=== PATIENT | female | born 1955 | race Caucasian/White ===

== ENCOUNTER → 2016-06-13 | Outpatient (CLI) | payer MEDICAID ==
[~2016-06-13] MED LIST: APAP/BUTALBITAL1 TA1 PO; ASPRIN OR; AUGMENTIN 875-1 EACH PO; B12-METHYL1000 MCG PO; BUPROPION HCL100 M1 PO; CIPRO 500MG TA500 MG PO; D3-50001 TAB PO; E-400400 IU PO; ERRIN0.35 MG PO; ETODOLAC400 MG PO; EXCEDRIN TENSIO1 CAP PO; FLONASE 50 MCG16 GM; HYDROCHLOROTHIA25 M1 PO; IBUPROFEN800 MG PO; LISINOPRIL/HCTZ1 TA3 FT; LOSARTAN POTASS50 MG PO; MAGNESIUM WITH ZINC OR; MEDROL 4MG. DOSE4 MG PO; MELATONIN5 M3 PO; METHOCARBAMOL750 M1 PO; MSM1000 MG PO; NABUMETONE750 MG PO; OLANZAPINE5 M1 PO; PANTOPRAZOLE SO40 MG PO; PHENERGAN12.5 M3 PO; ROBAXIN-750750 MG PO; TROSPIUM CHLORI20 MG PO; VIBRAMYCIN 100100 MG PO; VITA-BEE WITH C1 TAB PO; VITAMIN C500 M1 PO; VITAMIN E 400400 IU PO; VOLTAREN100 GM TP; WELLBUTRIN SR100 MG PO; ZOFRAN4 MG PO
[2016-06-13 15:44] LABS: HEMOGLOBIN 14.2 g/dL (12.2-16.2); LYMPH # 2.1 K/mm3 (0.7-4.5); LYMPH % 36.9 % (10-50.0)
[2016-06-13 17:00] LABS: BUN 16 mg/dL (7-18); GFR (ESTIMATED) 85 ML/MIN (59-)
== END ==
LOC: LAB 15:31
PROVIDERS: Family Medicine
DX: I10 Essential (primary) hypertension (principal); R53.83 Other fatigue; R05 Cough

== ENCOUNTER → 2016-12-09 | Outpatient (CLI) | payer MEDICAID ==
[2016-12-09 10:28] LABS: HEMOGLOBIN 13.5 g/dL (12.2-16.2); LYMPH # 2.5 K/mm3 (0.7-4.5); LYMPH % 52.5 % (10-50.0)
--- NOTE | 2016-12-09 11:23 | RADIOLOGY REPORT PS360 ---
CHEST(2 VIEWS-NOT PORTABLE) HISTORY: Hypertension HTN ORDERING PHYSICIAN: Baldomero Garces MD PATIENT AGE: 61 years COMPARISON: 03/08/2010 FINDINGS: The cardiomediastinal silhouette and pulmonary vascularity are within normal limits. No lobar consolidation or collapse is evident. There is some increased density anterior to the T10 and T11 vertebral body habitus somewhat similar appearance on the previous exam probably related to summation density from overlying vessels. Follow-up suggested to confirm stability. There are degenerative changes in the thoracic spine and shoulders. IMPRESSION: 1. No definite acute finding. 2. Nonspecific increased density anterior to the spine on the lateral view probably related to overlapping vessels. Follow-up recommended to confirm stability. Alternatively, chest CT may be of further value as well.
[2016-12-09 11:43] LABS: BUN 14 mg/dL (7-18)
[2016-12-09 11:50] LABS: GFR (ESTIMATED) 56 ML/MIN (59-)
[2016-12-09 12:19] LABS: NEUTROPHILS 32 % (42-76)
== END ==
LOC: LAB 10:16
PROVIDERS: Orthopaedic Surgery
DX: M17.11 Unilateral primary osteoarthritis, right knee (principal); Z01.810 Encounter for preprocedural cardiovascular examination; Z01.811 Encounter for preprocedural respiratory examination; Z01.812 Encounter for preprocedural laboratory examination; Z01.818 Encounter for other preprocedural examination

== ENCOUNTER 2016-12-24 06:05 | Inpatient (IN) | payer MEDICAID ==
[~2016-12-24] VITALS: Ht 170.2 cm; Wt 116.6 kg
[2016-12-24] VITALS (16 sets, daily range): BP systolic 80–147; BP diastolic 47–87
--- NOTE | 2016-12-24 11:46 | Anesthesia Record ---
Anesthesia Record Part I Total IV fluids: 800 EBL (ml): 200 Urine Output: 275 B/P: 120/75 % SaO2: 93 Pulse: 66 Resps: 10 Temp: 97.2 Patient is: Awake, Drowsy, Nasal O2, Stable Stable to PACU at: 1138 at 1146
--- NOTE | 2016-12-24 11:47 | Anesthesia Record ---
Anesthesia Record Part II Discharge time: 1208 Destination: Second Floor PACU nurse assessment review? Yes Patient is: Awake, Stable Anesthesia complications? No at 1143
--- NOTE | 2016-12-24 13:33 | PHARMACY CLINIC NOTE ---
Patient Demographics Patient Demographics Admission date: 12/24/16 Date: 12/24/16 Time: 1332 Allergies Coded Allergies: Penicillins (12/24/16) aspirin (From TALWIN COMPOUND) (12/24/16) cephalexin (12/24/16) diclofenac (From ARTHROTEC) (12/24/16) metaxalone (From SKELAXIN) (12/24/16) misoprostol (From ARTHROTEC) (12/24/16) nabumetone (From RELAFEN) (12/24/16) pentazocine (From TALWIN COMPOUND) (12/24/16) sucralfate (From CARAFATE) (12/24/16) topiramate (From TOPAMAX) (SLEEP WALKING 12/24/16) HEIGHT- FT: 5 IN: 4.00 K.575 VTE General Information Disclaimer The following section includes nursing documentation that has been pulled in for pharmacy review. VTE prophylaxis NQF [id number] VTE prophylaxis ordered? Yes Type of prophylaxis/treatment: ICD (POST OP) at 5230
--- NOTE | 2016-12-24 14:03 | RADIOLOGY REPORT PS360 ---
KNEE-LIMITED 2 VIEWS-RT HISTORY: Follow-up knee replacement s/p TKA ORDERING PHYSICIAN: Baldomero Garces MD PATIENT AGE: 61 years COMPARISON: 11/07/2016 FINDINGS: Status post total knee replacement. Good alignment of the prosthesis. No evidence of immediate orthopedic complication. IMPRESSION: Status post total knee replacement with good bony alignment
--- NOTE | 2016-12-24 14:43 | Operative Note ---
Procedure/Operative Record Date of Procedure: 12/24/16 Pre-op diagnosis: RIGHT knee osteoarthritis, tricompartmental Post-op diagnosis: Same Procedure performed: RIGHT knee total knee arthroplasty Surgeon: Baldomero Garces Catering Barista(s): Dr. East Anesthesia: Femoral sciatic block plus general anesthetic Indications: 61-year-old female with RIGHT knee pain due to osteoarthritis. This is been recalcitrant to nonsurgical means. All nonsurgical means which are appropriate with the patient a been exhausted and a total knee arthroplasty is indicated to preserve knee function, relieve pain, and help prevent falls. Findings: Intraoperative findings revealed the presence of tricompartmental osteoarthritis consistent with the preoperative x-rays. Multiple loose bodies were present within the joint. Description of procedure: The patient was taken to the operating room after anesthesia had previously administered a block. In the operating room, she was prepped and draped in usual sterile fashion after general anesthetic was administered. The entire operative team wore isolation suits. The operative site was sealed with Ioban and radiographic controlled. The limb was exsanguinated to 325 mmHg. A midline incision was made through the skin with a knife and electrocautery used to achieve hemostasis. The quadriceps tendon was incised with a median parapatellar incision and the patella everted carefully. We then removed remnants of the anterior cruciate ligament and anterior aspect of both menisci and utilized the entry drill to enter the femoral canal. The intramedullary rayna was placed and the distal cut alignment guide positioned. The distal cut was made and the sizing jig placed. This sized best at a size 4 for the [employer] system. We placed the four in one cutting jig in position and made the anterior, posterior, posterior chamfer, and anterior chamfer cuts in that order. We checked for trueness of cuts and then moved on to the tibia. We took care to ensure the tibia alignment was appropriate using the extra medullary jig. We then resected the tibia just skimming the subchondral bone on the medial side which was a heaviest involved with arthritis. We remove the tibial plateau articular surface and sized it at a size 4 as well. We then everted the patella and reamed for a 26 mm central pegged button. We placed trial components and noted that a 13 mm thick polyethylene fit best. This was stable allowed full extension. We allow this to free-floating and then checked it and made sure it was in appropriate position located over the tibial tubercle and slightly externally rotated. We had lateralized the femur and medialized the patella intentionally. A small bony defect was noted medially on the medial femoral condyle but this was not deemed of significant consequence. We used a small trocar tipped pin drill holes into the subchondral sclerotic bone of the medial tibia to augment cement fixation. We then copiously irrigated, injected the bone with 2 g of Ancef, and irrigated again. We then cemented the tibial tray, femur, and placed a 13 mm trial polyethylene insert and brought the knee into extension. We then cemented the central pegged button. We allow the cement to dry and then inspected for any bits and pieces that needed to be removed with an osteotome. This was performed and we irrigated again. We then deflated the tourniquet and checked for any bleeders arresting these with hemostasis electrocautery. We then placed the 13 mm final polyethylene ensuring that the dovetails fit appropriately and that the polyethylene was down and seated into the tibial tray. This was checked by the company support representative as well. We ensured appropriate patellar tracking. We then placed a dilute mixture of Betadine and the wound for three minutes. We then irrigated the Betadine out and began closure. Deep closure was with #1 Vicryl [id number] sutures ensuring a watertight closure. We then closed with 2-0 Vicryl and with subcuticular 4-0 Monocryl. Dermabond was used as well as Steri-Strips. Dressings were applied the patient awake and transported to the recovery room in satisfactory condition. EBL (ml): 100 Implant: Vaughn Nephew Radha II Oxinium femur, cemented, size 4, cruciate retaining. A size 4 cemented tibial baseplate was utilized. The polyethylene was a size 4 x 11 mm thick cruciate retaining for the baseplate and a 26 mm central peg polyethylene patella button area cement was methylmethacrylate without antibiotic at 5411
--- NOTE | 2016-12-24 15:16 | ACUTE CARE PROGRESS NOTE ---
Progress note Date: 12/24/16 Assessment: Patient is awake-- states she is in pain and the block was wearing off. She is shivering and somewhat anxious. Postoperative films are appropriate. Patient is beginning to have return of sensation. Pedal pulses intact. Impression: 1. Total knee replacement status Plan: Status post Knee replacement.... Patient's regional block is wearing off. Being instructed on use of BRICK CLEANER. Hemodynamically stable. Vital signs are stable. No evident complications. Discussed with nurse the medication list the patient takes. She will discuss this with pharmacy and we'll see if we can get the patient's home medications and so that she can take those that are not on our formulary. We'll also request consult from her family physician. at 5292
--- NOTE | 2016-12-24 15:16 | ACUTE CARE PROGRESS NOTE ---
Progress note Date: 12/24/16 Assessment: Patient is awake-- states she is in pain and the block was wearing off. She is shivering and somewhat anxious. Postoperative films are appropriate. Patient is beginning to have return of sensation. Pedal pulses intact. Impression: 1. Total knee replacement status Plan: Status post Knee replacement.... Patient's regional block is wearing off. Being instructed on use of SHROUDMAN. Hemodynamically stable. Vital signs are stable. No evident complications. Discussed with nurse the medication list the patient takes. She will discuss this with pharmacy and we'll see if we can get the patient's home medications and so that she can take those that are not on our formulary. We'll also request consult from her family physician. at 4264
[2016-12-24 21:12] LABS: URINE BILIRUBIN - DIPSTICK NEGATIVE (NEG); URINE BLOOD NEGATIVE (NEG)
[2016-12-25] VITALS (12 sets, daily range): BP systolic 87–144; BP diastolic 42–76
[2016-12-25 07:04] LABS: LYMPH # 1.4 K/mm3 (0.7-4.5); LYMPH % 17.8 % (10-50.0)
[2016-12-25 07:14] LABS: HEMOGLOBIN 11.1 g/dL (12.2-16.2)
--- NOTE | 2016-12-25 08:59 | ACUTE CARE PROGRESS NOTE (QUA) ---
Progress Notes Subjective Date 12/25/16 Time 0857 Note FAMILY MEDICINE CONSULT: Pt is POD #1 right TKA and is being seen to assist with medication management. SHe is anxious an tearful this morning. SHe is concerned about the fever she had during the night and seems anxious about starting rehab. She denies ST, congestion, cough, abdominal pain, nausea or dysuria. SHe is having appropriate post-op pain in her knee but also c/o muscle spasms in her back. Objective Findings Laboratory Tests 12/25/16 0640: Sodium 138, Potassium 3.7, Chloride 103, Carbon Dioxide 26, BUN 17, Creatinine 0.8, Estimated Creat Clear 136, Estimated GFR (MDRD) 73, Glucose 135 H, Calcium 7.9 L, WBC 8.0, RBC 3.45 L, Hgb 11.1 L, Hct 32.1 L, MCV 93.1, RDW 11.9, Plt Count 136 L, MPV 9.8, Gran % 73.9, Gran # 5.9, Lymphocytes % 17.8, Monocytes % 7.5, Eosinophils % 0.3, Basophils % 0.5, Lymphocytes # 1.4, Monocytes # 0.6, Eosinophils # 0.0, Basophils # 0.0, PUBS MCHC 34.2, MCH 31.9 H Last VS-Temp:99.9 B/P:99/52 Pulse:64 Resp:18 SaO2:97 OXYGEN Last weight lbs:257 oz:0.61775 K.575 Method:Bed Scales Exam General appearance: she is aroused from sleep upon entering room. SHe then quickly became anxious and tearful when discussing starting rehab. She is also worried about getting her home meds started. Cardiovascular: regular rate & rhythm Respiratory: clear to auscultation ABD: non-distended, normal bowel sounds, soft, no tenderness Genitourinary: catheter in place Extremities: normal capillary refill, no calf tenderness Skin: dry, normal color, warm Neuro: alert, no deficit, oriented, speech clear Reviewed: medications, vital signs, lab results, nursing notes Assessment/Plan Problem List 1. Total knee replacement status 2. Essential hypertension 3. Muscle spasm 4. Depression with anxiety Plan: Reviewed meds and ordered some of her home meds. Will check UA. Reassurance offered to patient and encouraged to particpate with therapy. This inpt stay is expected to cross 2 MNs from start of care Yes at 1801
[2016-12-25] MEDS ORDERED: STOOL SOFTENER240 M2 PO (10:26)
[2016-12-25] MEDS ORDERED: COENZYME Q-1050 MG PO (10:27)
[2016-12-25] MEDS ORDERED: ALAVERT D-12 HO1 T12 PO (10:27)
[2016-12-25] MEDS ORDERED: ASPERCREME 1035.4 GM TP (10:30)
[2016-12-25] MEDS ORDERED: MAGNESIUM500 MG PO (10:31)
[2016-12-25] MEDS ORDERED: MELOXICAM15 MG PO (10:32)
[2016-12-25] MEDS ORDERED: METOPROLOL SUCC25 M2 PO (10:33)
[2016-12-25] MEDS ORDERED: CYCLOBENZAPRINE10 M1 PO (10:37)
[2016-12-25] MEDS ORDERED: PANTOPRAZOLE SO40 M1 PO (10:40)
[2016-12-25] MEDS ORDERED: ZINC GLUCONATE PO (10:40)
[2016-12-25] MEDS ORDERED: VITAMIN D1000 IU PO (10:41)
[2016-12-25] MEDS ORDERED: B COMPLEX1 EACH PO (10:42)
[2016-12-25] MEDS ORDERED: FISH OIL CONCEN1 SG1 PO (10:44)
--- NOTE | 2016-12-25 12:53 | ACUTE CARE PROGRESS NOTE ---
Progress note Date: 12/25/16 Assessment: Postoperative day #1 Patient is awake alert and tearful. She states she "doesn't feel good" but that its "not her knee its the rest of me". Her hematocrit is 32 percent or vital signs are stable. Slight febrile template measurements last night. Dressing intact. Catheter in place. Neurovascular status grossly intact bilateral lower extremities. No evidence DVT or other competitions. Postoperative x-rays appropriate. I spent approximately 12-15 minutes conversing with the patient. She seems extremely anxious and when we are talking about the weather, other subjects, her twin children etc. she calms down within seconds and becomes pleasant and conversive. When focused on her rehabilitation following her knee replacement, her anxiety markedly increases and the patient begins trembling and becomes tearful again. Impression: 1. Total knee replacement status 2. Essential hypertension 3. Muscle spasm Plan: Report quite a bit in the hospital room trying to reassure the patient that anxiety and her concerns are not abnormal. I have encouraged her to focus on participating actively in her rehabilitation and I have assured her that day by day, I believe her pain will continue to be far less and she'll continue to improve. She does appear to be adequately medicated. I appreciate Dr. Benjamin's assistance with this patient's management. I will ask care management to speak with her regarding how best we can serve her when she is discharged at 7756
[2016-12-26] VITALS (12 sets, daily range): BP systolic 88–149; BP diastolic 54–82
--- NOTE | 2016-12-26 08:37 | ACUTE CARE PROGRESS NOTE (QUA) ---
Progress Notes Subjective Date 12/26/16 Time 0832 Note States she woke with a migraine and nausea. Subjective knee pain but nursing notes indicate she rested farily well during the night. Objective Findings Last VS-Temp:98.5 B/P: 149/78 Pulse:98 Resp:20 SaO2:94 OXYGEN Last weight lbs: 257 oz: 0.79488 K.575 Method: Bed Scales Exam General appearance: alert, emotional Cardiovascular: regular rate & rhythm Respiratory: clear to auscultation Assessment/Plan Problem List 1. Total knee replacement status 2. Essential hypertension 3. Muscle spasm 4. Depression with anxiety Plan: Continue rehab This inpt stay is expected to cross 2 MNs from start of care Yes at 0836
--- NOTE | 2016-12-26 08:37 | ACUTE CARE PROGRESS NOTE (QUA) ---
Progress Notes Subjective Date 12/26/16 Time 0832 Note States she woke with a migraine and nausea. Subjective knee pain but nursing notes indicate she rested farily well during the night. Objective Findings Last VS-Temp:98.5 B/P: 149/78 Pulse:98 Resp:20 SaO2:94 OXYGEN Last weight lbs: 257 oz: 0.20529 K.575 Method: Bed Scales Exam General appearance: alert, emotional Cardiovascular: regular rate & rhythm Respiratory: clear to auscultation Assessment/Plan Problem List 1. Total knee replacement status 2. Essential hypertension 3. Muscle spasm 4. Depression with anxiety Plan: Continue rehab This inpt stay is expected to cross 2 MNs from start of care Yes at 0836
--- NOTE | 2016-12-26 10:08 | ACUTE CARE PROGRESS NOTE ---
Progress note Date: 12/26/16 Assessment: Post Operative day #2 Sleeping quietly. When awakened, she complains of pain medially. The knee itself is examined and the dressing is clean and dry with a very scant amount of blood. The incision itself is clean and dry. A very slight effusion is noted. She has no drainage. No erythema or induration is noted. No ecchymosis. No wound complications noted. She is sensate to light touch in the foot and moves ankles to command. She has no calf tenderness negative Homans sign no palpable venous cords. She reports she has really not been active with physical therapy walking only from the chair to the bed. She continues to exhibit anxiety symptoms Impression: 1. Total knee replacement status 2. Essential hypertension 3. Muscle spasm 4. Depression with anxiety Plan: Dressing is changed. I've counseled her at length regarding need to participate in physical therapy actively. My overall impression is that she will require constant encouragement from a physical therapy aspect as I don't think the self motivation is going to overpower her anxiety. Last care management to see regarding disposition at 1000
[2016-12-26 11:51] LABS: URINE BILIRUBIN - DIPSTICK NEGATIVE (NEG); URINE BLOOD 3+ (NEG)
[2016-12-26 11:57] LABS: URINE SQUAMOUS CELLS OCC #/hpf (0-5)
--- NOTE | 2016-12-26 14:59 | ACUTE CARE PROGRESS NOTE ---
Progress note Date: 12/26/16 Assessment: Spoke with nursing staff. Patient's reveals infiltrated. It is appropriate to discontinue the RN DOCUMENTATION SPECIALIST as I had written in the general nursing orders. Unfortunate, the nurses are reporting that orders not been made available so they can see it. At this point, the patient have her IVs discontinued. Encourage ambulation. Encourage Lortab or other analgesics. Impression: 1. Total knee replacement status 2. Essential hypertension 3. Muscle spasm 4. Depression with anxiety Plan: As above at 2962
--- NOTE | 2016-12-26 14:59 | ACUTE CARE PROGRESS NOTE ---
Progress note Date: 12/26/16 Assessment: Spoke with nursing staff. Patient's reveals infiltrated. It is appropriate to discontinue the CHIEF INSPECTOR as I had written in the general nursing orders. Unfortunate, the nurses are reporting that orders not been made available so they can see it. At this point, the patient have her IVs discontinued. Encourage ambulation. Encourage Lortab or other analgesics. Impression: 1. Total knee replacement status 2. Essential hypertension 3. Muscle spasm 4. Depression with anxiety Plan: As above at 4420
[2016-12-27 00:55] VITALS: BP 112/55
[2016-12-27 05:15] VITALS: BP 122/77
[2016-12-27 07:37] VITALS: BP 131/65
--- NOTE | 2016-12-27 08:29 | ACUTE CARE PROGRESS NOTE (QUA) ---
Progress Notes Subjective Date 12/27/16 Time 0825 Note POD #3 Had a better day yesterday and feels a little better this AM. Ambulated into hallway yesterday. Independent to BR. Noted with decreased O2 sats. Denies chest congestion, pain or cough. Objective Findings Laboratory Tests 12/26/16 1135: Urine Color YELLOW, Urine Appearance CLEAR, Urine pH 6.0, Ur Specific [place] 1.015, Urine Protein TRACE H, Urine Ketones 2+ H, Urine Blood 3+ H, Urine Nitrate NEGATIVE, Urine Bilirubin NEGATIVE, Urine Urobilinogen 0.2, Ur Leukocyte Esterase NEGATIVE, Urine RBC 10-20, Urine WBC 5-10, Ur Squamous Epith Cells OCC, Urine Bacteria 1+, Urine Mucus 1+, Urine Glucose NEGATIVE Microbiology 12/26 113 URINE CC: Urine Culture - RES Last VS-Temp:98.7 B/P: 131/65 Pulse:92 Resp:20 SaO2:92 OXYGEN Last weight lbs: 257 oz: 0.0 K.575 Method: Bed Scales Exam General appearance: alert and in NAD. Not emotional this AM Cardiovascular: regular rate & rhythm Respiratory: clear to auscultation Assessment/Plan Problem List 1. Total knee replacement status 2. Essential hypertension 3. Muscle spasm 4. Depression with anxiety 5. Hypoxemia Plan: Slowly progressing. Hypoxemia likey due to atelectasis and sedentary activity. Encouraged IS and OOB. This inpt stay is expected to cross 2 MNs from start of care Yes at 0829
[2016-12-27 09:00] VITALS: BP 131/65
[2016-12-27 15:55] VITALS: BP 108/60
--- NOTE | 2016-12-27 17:04 | ACUTE CARE PROGRESS NOTE ---
Progress note Date: 12/27/16 Assessment: POD #3 Awake, alert. Vital signs all WNL. Urine culture neg for growth. Pt appears less anxious but still much less active with PT than would be expected for her age. I've counselled her daily regarding need to be up and moving, actively marshal HS and quads and calf muscles. Pt voices understanding but still somewhat behind expected activity level. She states she intends to "go to a friends home" postoperatively. Incision is clean and dry. Sensate to light touch B LE and moves toes and ankles. No evident DVT or other complication. Pain adequately controlled on lortab. Impression: 1. Total knee replacement status 2. Essential hypertension 3. Muscle spasm 4. Depression with anxiety 5. Hypoxemia Plan: Continue efforts to mobilize patient. anticapted discharge tomorrow (possibly) or more likely Thursday. at 1703
[2016-12-27 19:36] VITALS: BP 145/59
[2016-12-28 03:37] VITALS: BP 133/71
[2016-12-28 07:58] VITALS: BP 115/72
--- NOTE | 2016-12-28 08:18 | ACUTE CARE PROGRESS NOTE (QUA) ---
Progress Notes Subjective Date 12/28/16 Time 0814 Note States she has had a migraine headache most of the night, otherwise doing fairly well. She is mostly independendt in the room and ambulatiing in the hallway. Normal BM. She has been on room air with normal sats. Objective Findings Last VS-Temp:98.5 B/P: 115/72 Pulse:85 Resp:20 SaO2:95 ROOM AIR Last weight lbs: 257 oz: 0.0 K.575 Method: Bed Scales Exam General appearance: alert, no acute distress Neck: supple, no meningismus Cardiovascular: regular rate & rhythm Respiratory: clear to auscultation Extremities: no peripheral edema Assessment/Plan Problem List 1. Total knee replacement status 2. Essential hypertension 3. Muscle spasm 4. Depression with anxiety 5. Hypoxemia Plan: Continue per orders. Disposition per ortho. This inpt stay is expected to cross 2 MNs from start of care Yes at 0818
[2016-12-28 08:34] VITALS: BP 115/72
[2016-12-28] MEDS ORDERED: HYDROCODONE/ACE1 TA9 PO (12:31)
[2016-12-28] MEDS ORDERED: MEDI-FIRST ASP325 MG PO (12:33)
[2016-12-28] MEDS ORDERED: KEFLEX 500MG.500 MG PO (12:34)
--- NOTE | 2016-12-28 12:39 | Discharge Summary Report ---
General Admit date: 12/24/16 Discharge date: 12/28/16 Admission Dx: Right knee OA Discharge Dx: same Hospital course: stable...pt progressed to reg diet, ambulatory in hallway with good balance and muscle control. Able to get up to BSC and walk by herself. Incision clean and dry and pt without complications. VS and lab values all stable. No evident DVT. Problem List Medical Problems Abdominal pain, left lower quadrant Dental caries Depression with anxiety Essential hypertension Eye contusion Headache Hypertension Hypoxemia Knee sprain Leg length discrepancy Muscle spasm Pain in left foot Posterior tibial tendon dysfunction (PTTD) of left lower extremity Surgical Problems Total knee replacement status Total knee replacement status Allergies Coded Allergies: Penicillins (12/24/16) aspirin (From TALWIN COMPOUND) (12/24/16) cephalexin (12/24/16) diclofenac (From ARTHROTEC) (12/24/16) metaxalone (From SKELAXIN) (12/24/16) misoprostol (From ARTHROTEC) (12/24/16) nabumetone (From RELAFEN) (12/24/16) pentazocine (From TALWIN COMPOUND) (12/24/16) sucralfate (From CARAFATE) (12/24/16) topiramate (From TOPAMAX) (SLEEP WALKING 12/24/16) Med Rec DC summary Medications Reported Medications Methocarbamol (Robaxin 750MG) 1,500 MG PO TID PRN MUSCLES Losartan Potassium (Losartan 50MG) 50 MG PO BID HYDROCHLOROTHIAZIDE (Hydrochlorothiazide) 25 MG PO DAILY Ascorbic Acid (Vitamin C) 1,000 MG PO DAILY Trospium Chloride 20 MG PO BID Trolamine Salicylate/Aloe Vera (Aspercreme 10% Cream) 1 THIAGO TP BID Zinc Gluconate (ZINC) 50 MG PO DAILY CHOLECALCIFEROL (VITAMIN D3) (Vitamin D3) 2,000 IUNITS PO DAILY Vitamin B Complex (B Complex) 1 EACH PO DAILY OMEGA-3 FATTY ACIDS/FISH OIL (Fish Oil 1,000 MG Softgel) 2 SGL PO BID Docusate Calcium (Stool Softener) 240 MG PO DAILY #30 CAP UBIDECARENONE (Coenzyme Q-10) 50 MG PO DAILY #30 CAP LORATADINE/PSEUDOEPHEDRINE (Alavert D-12 Allergy-Sinus Tab) 1 T12 PO BID PRN ALLERGIES #24 TAB Magnesium Oxide 500 MG PO DAILY #30 TAB Meloxicam (Meloxicam 15MG) 15 MG PO DAILY #30 TAB Metoprolol Succinate 12.5 MG PO DAILY #15 TAB Cyclobenzaprine Hcl 10 MG PO QHSP PRN PAIN #30 TAB BUPROPION HCL SR (Wellbutrin SR 100MG) 100 MG PO BID Pantoprazole Sodium (Pantoprazole 40MG) 40 MG PO DAILY Melatonin 5 MG PO QHSP PRN SLEEP at 1232
--- NOTE | 2016-12-28 12:41 | ACUTE CARE PROGRESS NOTE ---
Progress note Date: 12/28/16 Assessment: Incision clean and dry. VSS AF. wants to go home and demonstrates appropriate ambulatory skills. Will secure walker as hers at home has broken brake. Impression: 1. Total knee replacement status 2. Essential hypertension 3. Muscle spasm 4. Depression with anxiety 5. Hypoxemia Plan: As above. F/U ortho in approx 10 days. Continue ASA for 10-14 days. at 1240
[2016-12-28 12:49] VITALS: BP 115/72
== END 2016-12-28 15:15 | disposition home or self-care (01) | DRG 470 ==
LOC: 2ND 06:05 → EDSTATUS 07:30 → SDC 07:30 → 2ND 12:52
PROVIDERS: Family Medicine; Orthopaedic Surgery
PROC: 0SRC0J9 Replacement of Right Knee Joint with Synthetic Substitute, Cemented, Open Approach (ICD-10-PCS; principal; 2016-12-24 07:30)
DX: M17.11 Unilateral primary osteoarthritis, right knee (principal); I10 Essential (primary) hypertension
CPT/HCPCS: C1765; C1776; J2405

== ENCOUNTER 2017-01-10 19:13 | Emergency (ER) | payer MEDICAID ==
[~2017-01-10] VITALS: Ht 170.2 cm; Wt 112.0 kg
[~2017-01-10 19:13] MED LIST changes: +ALAVERT D-12 HO1 T12 PO; +ASPERCREME 1035.4 GM TP; +B COMPLEX1 EACH PO; +COENZYME Q-1050 MG PO; +CYCLOBENZAPRINE10 M1 PO; +FISH OIL CONCEN1 SG1 PO; +HYDROCODONE/ACE1 TA9 PO; +KEFLEX 500MG.500 MG PO; +MAGNESIUM500 MG PO; +MEDI-FIRST ASP325 MG PO; +MELOXICAM15 MG PO; +METOPROLOL SUCC25 M2 PO; +PANTOPRAZOLE SO40 M1 PO; +STOOL SOFTENER240 M2 PO; +VITAMIN D1000 IU PO; +ZINC GLUCONATE PO
--- NOTE | 2017-01-10 20:12 | Emergency Room Report ---
History of Present Illness Time Seen by 1999 Presenting Problem in Triage Pt arrived:Walked Presenting Problem:PAIN IN RIGHT KNEE, POST OP 2 WEEKS FROM KNEE REPLACEMENT IN RIGHT KNEE. STATES SHE HAD BEEN DOING FINE, PAIN WAS GOOD, SHE FELL YESTERDAY AND LANDED ON RIGHT KNEE, HAD TROUBLE GETTING UP AND WAS WORSE THAN THE ACTUAL FALL. FELT A RIPPING/TEARING FEELING IN RIGHT KNEE. DR.PETTY GARCIA. STATES DR. PURDY TAKING OVER CARE. 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 N Clinical Suspician of Infection? N Mental Status: 1 - Regular (Normal Baseline) Sepsis Risk:Low Sepsis Risk Have you (or family members/close friends) recently traveled outside the [place]? N If Yes, where/when: Have you had exposure to infectious disease within the past month? N TB? Other? Specify: Source patient, RN notes reviewed, family, old records Exam Limitations no limitations Comment pt with fall yesterday and has pain to rt knee with recent knee replacement - pt with no fever or other c/o Cardiac Chest Pain Chest pain indicative of cardiac No Timing/Duration this evening Severity moderate ALLERGIES Coded Allergies: Penicillins (12/24/16) cephalexin (12/24/16) diclofenac (From ARTHROTEC) (12/24/16) metaxalone (From SKELAXIN) (12/24/16) misoprostol (From ARTHROTEC) (12/24/16) nabumetone (From RELAFEN) (12/24/16) pentazocine (From TALWIN) (01/10/17) sucralfate (From CARAFATE) (12/24/16) topiramate (From TOPAMAX) (SLEEP WALKING 12/24/16) Home Medications Active Scripts Aspirin 325 MG PO DAILY #14 TAB Prov: 12/28/16 Reported Medications HYDROCHLOROTHIAZIDE (Hydrochlorothiazide) 25 MG PO DAILY Ascorbic Acid (Vitamin C) 1,000 MG PO DAILY Trospium Chloride 20 MG PO BID Trolamine Salicylate/Aloe Vera (Aspercreme 10% Cream) 1 THIAGO TP BID Zinc Gluconate (ZINC) 50 MG PO DAILY CHOLECALCIFEROL (VITAMIN D3) (Vitamin D3) 2,000 IUNITS PO DAILY Vitamin B Complex (B Complex) 1 EACH PO DAILY Docusate Calcium (Stool Softener) 240 MG PO DAILY #30 CAP UBIDECARENONE (Coenzyme Q-10) 50 MG PO DAILY #30 CAP Magnesium Oxide 500 MG PO DAILY #30 TAB Meloxicam (Meloxicam 15MG) 15 MG PO DAILY #30 TAB Pantoprazole Sodium (Pantoprazole 40MG) 40 MG PO DAILY Melatonin 5 MG PO QHSP PRN SLEEP History Medical History General CAD? No Angina: No NC: No Hypertension? Yes Hyperlipidemia? No CHF? No DVT? No PE? No COPD? No Asthma? No Anemia? No GERD? No Gastric ulcers? No GI Bleed? No Hernia? Yes Thyroid Problems? No Hypothyroidism? No CVA? No Seizures? No Diabetes? No Insulin Dependent: No Insulin Pump: No Home FSBS? No Renal Insuffiency? No End Stage Renal Disease? No UTI? Yes Stones? No BPH? No GB Disease: No Nephritic Syndrome? No Asplenia? No Hepatitis? No Sickle Cell Disease? No Arthritis? Yes Migraines? Yes Cataracts? No Glaucoma? No MRSA? No HIV? No TB? No Anxiety? No Depression? Yes Cancer? No More? No Immunization Hx DT/Tetanus N Flu Refused Pneumonia Received In Past Surgical Hx Previous Surgery?Y ABD HERNIA REPAIR CARPEL TUNNEL BILAT TONSILLECTOMY RIGHT KNEE Family History Family Hx Diabetes No CAD No Hypertension No Hyperlipidemia No Cancer No TB No Social History Smoking Hx Smoker: Never Smoker Tobacco: No Type Cigarettes Alcohol Alcohol: No Drugs none Review of Systems All Other Systems Reviewed and Negative Constitutional denies fever Eyes denies drainage ENT denies: ear pain, epistaxis, throat pain. Respiratory denies cough, denies shortness of breath, denies wheezing Cardiovascular denies chest pain, denies palpitations, denies syncope Gastrointestinal denies abdominal pain, denies diarrhea, denies vomiting Genitourinary denies: dysuria, frequency, hesitancy, hematuria. Musculoskeletal see HPI, joint pain, joint swelling, denies neck pain Skin denies rash Psychiatric/Neurological denies headache, denies seizure, denies weakness Physical Exam Vital Signs Vital Signs Date Time Temp Pulse Resp B/P Pulse O2 O2 Flow FiO2 Ox Delivery Rate 01/10 2039 72 20 112/61 99 01/10 1924 98.6 96 18 132/104 97 - WBC >12,000 or <4,000 or 10% bands? 2 or more SIRS Criteria Met? B/P:132/104 MAP:113 Creatinine >2.0? UA output<0.5ml/kg/hr for 2 hrs? Platelet count >100,000? Lactate >2.0mmol/1? INR >1.2 or PTT > than 60 sec? Evidence of Organ Dysfunction? Provider documented clinical suspician of infection? N Sepsis Criteria Count: 1 Sepsis Risk: Low Sepsis Risk General Appearance no apparent distress Eye Exam - bilateral eye PERRL, bilateral eye EOMI Ear, Nose, Throat normal ENT inspection Neck supple Respiratory Status No: respiratory distress. 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 No Results/Orders Orders Procedure Date/time Status DIET-NOTHING BY MOUTH 01/[address] EXT.LOWER-RT-W/O CONTRAST 01/[address] SCAN REQ 01/10 1949 Active XRAY/CT/US XRAY/CT/US CT knee CT interpretation by discussed w/radiologist Time results known: 2032 CT Results no fracture seen Departure Departure Time of Disposition 2032 Disposition DC Home or Self Care(routine) Clinical Impression Primary Impression: Knee pain, right Qualifiers: Chronicity: acute Qualified Code: M25.561 - Pain in right knee Condition STABLE Referrals Albert Benjamin MD (Family) discussed with dr paul Patient Instructions DI for Knee Replacement Additional Instructions ice and wt bearing as althea and call ortho thursday to arrange follow up and wear knee immbolizer Discharge Counseling Counseled pt/family regarding diagnosis, test results, medications/RX, follow up needs ED Critical Care Critical Care No at [phone]
[2017-01-10 21:07] VITALS: BP 112/61
--- NOTE | 2017-01-11 09:28 | RADIOLOGY REPORT PS360 ---
CT EXT.LOWER-RT-W/O CONTRAST INDICATION: Right knee pain following injury, recent right knee replacement RT KNEE INJURY ORDERING PHYSICIAN: Earlene Livingston MD PATIENT AGE: 61 years COMPARISON: Radiograph of the 01/08/2017 TECHNIQUE: Axial images are obtained without contrast. Sagittal and coronal reformatted images are reviewed as well. FINDINGS: Total knee arthroplasty is in place with marked amount of streak artifact limiting the examination. Of the visualized bony structures, no acute fracture evident.. No evidence of prosthesis dislocation. There is prominent soft tissue swelling in suprapatellar region with a suprapatellar effusion. Small amount fluid is present inferior to the patella. No soft tissue gas evident. IMPRESSION: Status post total knee arthroplasty with postsurgical changes noted and extensive artifact. No acute fracture. Soft tissue swelling with knee joint effusion
== END 2017-01-10 21:08 | disposition home or self-care (01) ==
LOC: UTC 19:13 → ER 19:19
DX: M25.561 Pain in right knee (principal); Z96.651 Presence of right artificial knee joint; I10 Essential (primary) hypertension; Z79.899 Other long term (current) drug therapy

== ENCOUNTER → 2017-03-25 | Outpatient (CLI) | payer MEDICAID ==
--- NOTE | 2017-03-25 13:55 | RADIOLOGY REPORT PS360 ---
KNEE-LIMITED 2 VIEWS-RT HISTORY: Follow-up knee replacement RT ARTIFICIAL KNEE JOINT ORDERING PHYSICIAN: Baldomero Garces MD PATIENT AGE: 62 years COMPARISON: 01/08/2017 FINDINGS: Status post total knee replacement. No evidence of orthopedic complications. Nonspecific soft tissue calcification along the medial aspect of the distal femur unchanged. Good alignment. IMPRESSION: Status post total knee replacement with no acute finding
== END ==
LOC: RAD 13:17
DX: Z96.651 Presence of right artificial knee joint (principal)